=== PATIENT | female | born 1950 | race Caucasian/White ===

== ENCOUNTER 2022-02-10 11:11 | Emergency (ER) | payer OTHER, SELFPAY ==
--- NOTE | 2022-02-10 11:21 | DI.RAD.S_ITS ---
PROCEDURE: XR CHEST 1V INDICATIONS: syncope TECHNIQUE: One view of the chest was acquired. COMPARISON: None. FINDINGS: Surgical changes and devices: None. Lungs and pleura: There is hyperinflation and chronic interstitial changes without focal infiltrate, pleural effusion or pneumothorax. Mediastinum: Mediastinal contours appear normal. Heart size is normal. Bones and chest wall: In auto text osteopenia convex right thoracic scoliosis IMPRESSION: Hyperinflation and chronic interstitial changes without focal infiltrate, pneumothorax or pleural effusion Approved by: Chaim Woo M.D. on 02/10/2022 at 11:33
--- NOTE | 2022-02-10 11:21 | DI.CT.S_ITS ---
PROCEDURE: CT HEAD/BRAIN WO CON INDICATIONS: syncope TECHNIQUE: Noncontrast 4.5 mm thick angled axial sections acquired from the foramen magnum to the vertex, with coronal and sagittal reformats. For radiation dose reduction, the following was used: automated exposure control, adjustment of mA and/or kV according to patient size. COMPARISON: None. FINDINGS: Image quality: Excellent. CSF spaces: Basal cisterns are patent. No extra-axial fluid collections. Ventricles are normal in size and shape. Brain: No midline shift. No intracranial masses or hemorrhage. Watts-white matter interface is normal. Skull and face: Calvarium and visualized facial bones are intact, without suspicious lesions. Sinuses: Visualized sinuses and mastoids are clear. IMPRESSION: Normal CT of the brain Approved by: Chaim Woo M.D. on 02/10/2022 at 10:58
[2022-02-10 11:40] LABS: Alanine Aminotransferase 23 IU/L (<35); Albumin 4.2 g/dL (3.5-5.0); Albumin Globulin Ratio 1.2 (1.0-2.8); Alkaline Phosphatase 84 U/L (38-126); Aspartate Aminotransferase 40 IU/L (14-36); BUN Creatinine Ratio 17.6 (6-22); Bilirubin Total 0.7 mg/dL (0.2-1.3); Blood Urea Nitrogen 13 mg/dL (7-17); Calcium 9.3 mg/dL (8.4-10.2); Carbon Dioxide 23 mmol/L (22-32); Chloride 105 mmol/L (98-107); Creatine Kinase 92 U/L (30-135); Estimated Glomerular Filt Rate > 60 mL/min (>60); Globulin 3.6 g/dL (1.7-4.1); Glucose 122 mg/dL (80-110); Lipase 48 U/L (23-300); Potassium 3.8 mmol/L (3.4-5.1); Sodium 140 mmol/L (137-145); Total Protein 7.8 g/dL (6.3-8.2)
[2022-02-10 11:41] VITALS: BP 104/54; PULSE 82; RESP 14; TEMP 36.2; O2SAT 98
[2022-02-10 11:44] LABS: HEMOLYSIS 68 (0-50)
[2022-02-10 11:51] LABS: Troponin I < 0.012 ng/mL (0.01-0.034)
[2022-02-10 12:47] LABS: Influenza A - CEPHEID Flu A NEGATIVE (NEGATIVE); Influenza B - CEPHEID Flu B NEGATIVE (NEGATIVE); Respiratory Syncytial Virus Negative (Negative)
[2022-02-10 12:55] LABS: COVID-19 CEPHEID 4-PLEX PCR Negative (Negative)
[2022-02-10 12:55] LABS: Add Manual Diff / Slide Review NO; Basophils Absolute Auto 0 /uL (0-100); Basophils Percent Auto 0.5 % (0-2); Eosinophils Absolute Auto 0 /uL (0-450); Eosinophils Percent Auto 0.4 % (2-4); Hematocrit 41.4 % (36-46); Lymphocytes Absolute Auto 1000 /uL (1100-4500); Lymphocytes Percent Auto 10.7 % (25-40); Mean Corpuscular HGB Conc 33.7 % (30-36); Mean Corpuscular Hemoglobin 30.2 PG (26-34); Mean Corpuscular Volume 89.5 fL (80-100); Monocytes Absolute Auto 600 /uL (0-900); Neutrophils Absolute Auto 7800 /uL (1500-7000); Neutrophils Percent Auto 82.4 % (50-75); Platelet Count 224 X10^3/uL (150-400); Red Blood Cell Count 4.63 X10^6/uL (4.0-5.2); Red Cell Distribution Width 14.4 % (11.6-14.8); White Blood Cell Count 9.4 X10^3/uL (4.5-11.0)
--- NOTE | 2022-02-10 12:56 | ED.SYNCOPE ---
HPI - Syncope General Chief Complaint: Dizziness Stated Complaint: dizzy, lightheaded Time Seen by Provider: 02/10/22 11:21 History of Present Illness HPI narrative: Patient is a 71-year-old female history of osteoporosis presents today for syncopal episode. She states that she flew here from [place] on . Today she was in the hotel room taking a shower when she got very lightheaded she out of the shower sat on a closed toilet then slipped off and got stuck between the vanity and toilet. Brief episode of loss of consciousness possibly hit her head partner heard her immediately no nausea vomiting numbness tingling or weakness. She is not having any headache. She denies any chest pain palpitations or shortness of breath. He has been complaining of some left-sided chest discomfort ongoing for a number of weeks it does not seem to be any worse today. It is definitely reproducible with palpation and it does not seem to be moving. She reports that normally her blood pressure is a little bit low but he is not sure what the numbers are. He says she is very active hiking and doing other things in her life Review of Systems Review of Systems ROS Unobtainable: All systems reviewed & are unremarkable except as noted in HPI and below Exam Initial Vital Signs Initial Vital Signs: Vital Signs Temperature 97.1 F L 02/10/22 11:41 Pulse Rate 82 02/10/22 11:41 Respiratory Rate 14 02/10/22 11:41 Blood Pressure 104/54 L 02/10/22 11:41 Pulse Oximetry 98 02/10/22 11:41 Oxygen Delivery Method 02/10/22 11:41 GENERAL: Alert 71-year-old female and in no acute distress. HEENT: Head atraumatic,EOMI, pupils reactive, face symmetric, moist mucous membranes CARDIOVASCULAR: Regular rate and rhythm without murmurs, rubs or gallops. RESPIRATORY: Breath sounds equal bilaterally, no wheezes rales or rhonchi. ABDOMEN: Soft, nontender. Normoactive bowel sounds all 4 quadrants. No guarding or rebound. EXTREMITIES: Normal range of motion, no clubbing or edema. Neurovascularly intact NEUROLOGICAL: Alert and oriented x4.Normal gait and speech. Cranial nerves II through XII grossly intact. Good gbuxxd-mx-doin, good [id number], strength equal bilaterally, no dysarthria or aphasia, sensation in tact to soft touch bilaterally, no visual changes, no facial droop SKIN: Warm, dry, no laceration, no petechiae, no rashes or lesions. Scores NIH Stroke Scale Level of Conciousness: Alert, keenly responsive Ask month/age: Answers both questions correctly. Open/close eyes, close hand: Performs both tasks correctly Best gaze horizontal: Normal Visual henriquez: No visual loss Facial palsy: Normal symetrical movement Left arm drift: No drift for full 10 sec Right arm drift: No drift for full 10 sec Left leg drift: No drift for full 5 sec Right leg drift: No drift for full 5 sec Limb ataxia: Absent Sensory on face/arms/legs: Normal, no sensory loss Best language: No aphasia, normal Dysarthria: Normal Extinction or inattention: No abnormality Total NIH Stroke scale score: 0 PERC Score Age greater than or equal to 50 years: Yes Heart rate greater than or equal to 100 bpm: No Room Air O2 Sat less than 95%: No Unilateral leg swelling: No Recent trauma or surgery: No Hemoptysis: No Prior PE or DVT: No Hormone Use: No Total PERC Score: 1 Course Orders Ordered: ED Orders 02/10/22 11:15 Comprehensive Metabolic Panel Stat Lipase Stat Troponin & CK Cardiac Panel Stat 02/10/22 11:21 CT head/brain wo con Stat XR chest 1V Stat EKG-12 Lead Stat 02/10/22 11:59 Covid-19 + FLU A/B + RSV - PCR Stat 02/10/22 12:00 Complete Blood Count AUTO DIFF Stat D Dimer Stat 02/10/22 14:06 XR ribs LT min 3V w CXR1V Stat Discontinued Medications Sodium Chloride (Normal Saline 0.9%) 1,000 mls @ 1,000 mls/hr IV BOLUS ONE Stop: 02/10/22 13:57 Last Infusion: 02/10/22 14:55 Dose: 0 mls/hr Documented By: Admin: 02/10/22 13:37 Dose: 1,000 mls/hr Documented By: RL Ketorolac Tromethamine (Ketorolac 30 Mg/Ml Vial) 15 mg IV NOW ONE Stop: 02/10/22 14:07 Last Admin: 02/10/22 14:39 Dose: 15 mg Documented By: ANUM Vital Signs Vital signs: Vital Signs - 8 hr 02/10/22 11:41 02/10/22 14:57 Temperature 97.1 F L Pulse Rate 82 Respiratory Rate 14 Blood Pressure 104/54 L 119/57 L Pulse Oximetry 98 Oxygen Delivery Method Room Air MDM - Syncope Lab Data Result diagrams: 02/10/22 12:00 02/10/22 11:15 Labs: Lab Results 02/10/22 02/10/22 02/10/22 Range/Units 11:15 11:59 12:00 WBC 9.4 (4.5-11.0) X10^3/uL RBC 4.63 (4.0-5.2) X10^6/uL Hgb 14.0 (12.0-16.0) g/dL Hct 41.4 (36-46) % MCV 89.5 (80-100) fL MCH 30.2 (26-34) PG MCHC 33.7 (30-36) % RDW 14.4 (11.6-14.8) % Plt Count 224 (150-400) X10^3/uL Neut % (Auto) 82.4 H (50-75) % Lymph % (Auto) 10.7 L (25-40) % [place] % (Auto) 6.0 (3-14) % Eos % (Auto) 0.4 L (2-4) % Baso % (Auto) 0.5 (0-2) % Neut # (Auto) 7800 H (3397-7042) /uL Lymph # (Auto) 1000 L (8166-2683) /uL [place] # (Auto) 600 (0-900) /uL Eos # (Auto) 0 (0-450) /uL Baso # (Auto) 0 (0-100) /uL D-Dimer (<500) ng/ml Sodium 140 (137-145) mmol/L Potassium 3.8 (3.4-5.1) mmol/L Chloride 105 (98-107) mmol/L Carbon Dioxide 23 (22-32) mmol/L BUN 13 (7-17) mg/dL Creatinine 0.74 (0.52-1.04) mg/dL Estimated GFR > 60 (>60) mL/min BUN/Creatinine Ratio 17.6 (6-22) Glucose 122 H (80-110) mg/dL Calcium 9.3 (8.4-10.2) mg/dL Total Bilirubin 0.7 (0.2-1.3) mg/dL AST 40 H (14-36) IU/L ALT 23 (<35) IU/L Alkaline Phosphatase 84 (38-126) U/L Total Creatine Kinase 92 (30-135) U/L CK-MB (CK-2) TNP CK-MB (CK-2) Rel Index TNP Troponin I < 0.012 (0.01-0.034) ng/mL Total Protein 7.8 (6.3-8.2) g/dL Albumin 4.2 (3.5-5.0) g/dL Globulin 3.6 (1.7-4.1) g/dL Albumin/Globulin Ratio 1.2 (1.0-2.8) Lipase 48 (23-300) U/L SARS-CoV-2 (PCR) Negative (Negative) Influenza A (RT-PCR) Flu a negative (NEGATIVE) Influenza B (RT-PCR) Flu b negative (NEGATIVE) RSV (PCR) Negative (Negative) 02/10/22 Range/Units 12:00 WBC (4.5-11.0) X10^3/uL RBC (4.0-5.2) X10^6/uL Hgb (12.0-16.0) g/dL Hct (36-46) % MCV (80-100) fL MCH (26-34) PG MCHC (30-36) % RDW (11.6-14.8) % Plt Count (150-400) X10^3/uL Neut % (Auto) (50-75) % Lymph % (Auto) (25-40) % [place] % (Auto) (3-14) % Eos % (Auto) (2-4) % Baso % (Auto) (0-2) % Neut # (Auto) (4428-0933) /uL Lymph # (Auto) (3359-0289) /uL [place] # (Auto) (0-900) /uL Eos # (Auto) (0-450) /uL Baso # (Auto) (0-100) /uL D-Dimer 500 (<500) ng/ml Sodium (137-145) mmol/L Potassium (3.4-5.1) mmol/L Chloride (98-107) mmol/L Carbon Dioxide (22-32) mmol/L BUN (7-17) mg/dL Creatinine (0.52-1.04) mg/dL Estimated GFR (>60) mL/min BUN/Creatinine Ratio (6-22) Glucose (80-110) mg/dL Calcium (8.4-10.2) mg/dL Total Bilirubin (0.2-1.3) mg/dL AST (14-36) IU/L ALT (<35) IU/L Alkaline Phosphatase (38-126) U/L Total Creatine Kinase (30-135) U/L CK-MB (CK-2) CK-MB (CK-2) Rel Index Troponin I (0.01-0.034) ng/mL Total Protein (6.3-8.2) g/dL Albumin (3.5-5.0) g/dL Globulin (1.7-4.1) g/dL Albumin/Globulin Ratio (1.0-2.8) Lipase (23-300) U/L SARS-CoV-2 (PCR) (Negative) Influenza A (RT-PCR) (NEGATIVE) Influenza B (RT-PCR) (NEGATIVE) RSV (PCR) (Negative) Urine Dip Bedside Urine Glucose Negative Bedside Urine Bilirubin - Negative Bedside Urine Ketone - Negative Urine Specific [place] 1.010 Bedside Urine Occult Blood - Negative Bedside Urine pH 7.0 Bedside Urine Protein - Negative Bedside Urine Urobilinogen - Negative Bedside Urine Nitrite - Negative Bedside Urine Leukocytes - Negative Esterase Imaging Data CT scan - head: Radiologist's Impression: Signed Patient: Amirah Weber MR#: [id number] : 1950 Acct:[id number] Age/Sex: 71 / F Date of Service: 02/10/22 Loc: ED Accession Number: [id number] ?? Procedure: CT head/brain wo con Ordering Provider: Araceli Griffin D.O. PROCEDURE:? CT HEAD/BRAIN WO CON ? INDICATIONS:? syncope ? TECHNIQUE:? Noncontrast 4.5 mm thick angled axial sections acquired from the foramen magnum to the vertex, with coronal and sagittal reformats.? For radiation dose reduction, the following was used:? automated exposure control, adjustment of mA and/or kV according to patient size.? ? COMPARISON:? None. ? FINDINGS:? Image quality:? Excellent.? ? CSF spaces:? Basal cisterns are patent.? No extra-axial fluid collections.? Ventricles are normal in size and shape.? ? Brain:? No midline shift.? No intracranial masses or hemorrhage.? Watts-white matter interface is normal.? ? Skull and face:? Calvarium and visualized facial bones are intact, without suspicious lesions.? ? Sinuses:? Visualized sinuses and mastoids are clear.? ? IMPRESSION:? Normal CT of the brain ? ? ? Approved by: Chaim Woo M.D. on 02/10/2022 at 10:58? Chest x-ray: Radiologist's Impression: [email or web address] gan [id number] XRay Report Signed Patient: Amirah Weber MR#: [id number] : 1950 Acct:[id number] Age/Sex: 71 / F Date of Service: 02/10/22 Loc: ED Accession Number: [id number] ?? Procedure: XR chest 1V Ordering Provider: Araceli Griffin D.O. PROCEDURE:? XR CHEST 1V ? INDICATIONS:? syncope ? TECHNIQUE:? One view of the chest was acquired.? ? COMPARISON:? None. ? FINDINGS:? ? Surgical changes and devices:? None.? ? Lungs and pleura:? There is hyperinflation and chronic interstitial changes without focal infiltrate, pleural effusion or pneumothorax. ? Mediastinum:? Mediastinal contours appear normal.? Heart size is normal.? ? Bones and chest wall:? In auto text osteopenia convex right thoracic scoliosis ? IMPRESSION:? Hyperinflation and chronic interstitial changes without focal infiltrate, pneumothorax or pleural effusion ? ? ? Approved by: Chaim Woo M.D. on 02/10/2022 at 11:33? ribs: My Impression: No fracture or pneumothorax Radiologist's Impression: XRay Report Signed Patient: Amirah Weber MR#: [id number] : 1950 Acct:[id number] Age/Sex: 71 / F Date of Service: 02/10/22 Loc: ED Accession Number: [id number] ?? Procedure: XR ribs LT min 3V w CXR1V Ordering Provider: Araceli Griffin D.O. PROCEDURE:? XR RIBS LT MIN 3V W CXR1V ? INDICATIONS:? fall pain ? TECHNIQUE:? 2 views of the left ribs were acquired, along with a single view chest.? ? COMPARISON:? None. ? FINDINGS:? ? Surgical changes and devices:? None.? ? Bones and chest wall:? No fractures or dislocations.? No suspicious bony lesions.? Overlying soft tissues appear unremarkable.? Convex right thoracic scoliosis present. ? Lungs and pleura:? There is hyperinflation and chronic interstitial changes without focal infiltrate, pleural effusion or pneumothorax. ? Mediastinum:? Mediastinal contours appear normal.? Heart size is normal.? ? IMPRESSION:? No acute cardiopulmonary findings.? No rib fracture or pneumothorax. ? ? ? Approved by: Chaim Woo M.D. on 02/10/2022 at 14:31? ECG Data Interpretation: Normal sinus rhythm rate 78 WV interval 156 QRS [address] changes no T-wave inversions no priors to compare low voltage noted MDM Narrative Medical decision making narrative: Patient is 71-year-old female presents after syncopal episode. She is no focal deficits not on any anticoagulation head CT is negative exam is overall reassuring. Noted to be mildly hypotensive with blood pressure 98. She did recently fly from [place] possible cause of syncope is a pulmonary embolism although she is not hypoxic or tachycardic. D-dimer is checked and his 500. At this time I do not see need for further testing. She is overall feeling better after IV fluids. She is ambulatory to the restroom blood pressure has improved. No sign of infection. She is not septic no sign of renal failure or electrolyte disturbance. Likely fainting secondary to low blood pressure. Discharge Plan Departure Patient Disposition: Home Clinical Impression: Near syncope Instructions: DI for Syncope in Adults (Fainting) Activity Restrictions/Additional Instructions: *You have been diagnosed with fainting episode *What to do: Today your blood pressure was noted to be slightly low which may be contributing to you passing out. Blood work is overall reassuring. No evidence of infection no need for antibiotics. Please stay hydrated eat regularly and take it easy *Continue to take medications as directed *Follow up with your primary care provider in 2-3 days or call [phone] *Return to ER if you should have recurrent episode of passing out chest pain palpitations or shortness of breath or any new, worsening or concerning symptoms
[2022-02-10 13:37] LABS: D Dimer 500 ng/ml (<500)
[2022-02-10] MEDS: SODIUM CHLORIDE 0.9% 1,000 ML 1000 ML IV (13:37)
--- NOTE | 2022-02-10 14:06 | DI.RAD.S_ITS ---
PROCEDURE: XR RIBS LT MIN 3V W CXR1V INDICATIONS: fall pain TECHNIQUE: 2 views of the left ribs were acquired, along with a single view chest. COMPARISON: None. FINDINGS: Surgical changes and devices: None. Bones and chest wall: No fractures or dislocations. No suspicious bony lesions. Overlying soft tissues appear unremarkable. Convex right thoracic scoliosis present. Lungs and pleura: There is hyperinflation and chronic interstitial changes without focal infiltrate, pleural effusion or pneumothorax. Mediastinum: Mediastinal contours appear normal. Heart size is normal. IMPRESSION: No acute cardiopulmonary findings. No rib fracture or pneumothorax. Approved by: Chaim Woo M.D. on 02/10/2022 at 14:31
[2022-02-10] MEDS: KETOROLAC 30 MG/ML VIAL 15 MG IV (14:39)
[2022-02-10 14:57] VITALS: BP 119/57
== END 2022-02-10 15:03 | disposition home or self-care (01) ==
PROVIDERS: Emergency Provider Emergency Medicine
DX: R55 Syncope and collapse (principal); I95.9 Hypotension, unspecified; S09.90XA Unspecified injury of head, initial encounter; R07.81 Pleurodynia; W18.30XA Fall on same level, unspecified, initial encounter
CPT/HCPCS: 0241U; 36415; 70450; 71045; 71101; 80053; 81003; 82550; 83690; 84484; 85025; 85379; 93005; 96361; 96374; 99284; J1885